=== PATIENT | female | born 1950 | race Caucasian/White ===

== ENCOUNTER 2022-06-18 04:40 | Day surgery (SDC) | payer OTHER ==
[2022-06-14 15:10] VITALS: BMI 38.2
[2022-06-18 10:13] VITALS: RESP 19
[2022-06-18 10:21] VITALS: BP 110/62; PULSE 69; TEMP 98
== END 2022-06-18 10:21 | disposition home or self-care (01) ==
LOC: JASU-ENDO 04:40
PROVIDERS: ATTEND Student in an Organized Health Care Education/Training Program
PROC: 0DB78ZX Excision of Stomach, Pylorus, Via Natural or Artificial Opening Endoscopic, Diagnostic (ICD-10-PCS; 2022-06-18)
PROC: 0DB68ZX Excision of Stomach, Via Natural or Artificial Opening Endoscopic, Diagnostic (ICD-10-PCS; 2022-06-18)
PROC: 0DB28ZX Excision of Middle Esophagus, Via Natural or Artificial Opening Endoscopic, Diagnostic (ICD-10-PCS; 2022-06-18)
PROC: 0DB38ZX Excision of Lower Esophagus, Via Natural or Artificial Opening Endoscopic, Diagnostic (ICD-10-PCS; principal; 2022-06-18 09:00)
DX: K29.50 Unspecified chronic gastritis without bleeding (principal); K21.00 Gastro-esophageal reflux disease with esophagitis, without bleeding; K25.9 Gastric ulcer, unspecified as acute or chronic, without hemorrhage or perforation
CPT/HCPCS: 82962; 88305-TC; 88342-TC

== ENCOUNTER 2022-10-29 05:01 | Day surgery (SDC) | payer OTHER ==
[2022-10-23 08:52] VITALS: BMI 37.8
[2022-10-29 11:37] VITALS: TEMP 97.9
[2022-10-29 14:34] VITALS: BP 118/65; PULSE 65; RESP 14
== END 2022-10-29 12:00 | disposition home or self-care (01) ==
LOC: JASU-ENDO 05:01
PROVIDERS: ATTEND Student in an Organized Health Care Education/Training Program
PROC: 0DB78ZX Excision of Stomach, Pylorus, Via Natural or Artificial Opening Endoscopic, Diagnostic (ICD-10-PCS; principal; 2022-10-29 10:00)
DX: K29.50 Unspecified chronic gastritis without bleeding (principal); Z87.11 Personal history of peptic ulcer disease; I10 Essential (primary) hypertension; E11.9 Type 2 diabetes mellitus without complications
CPT/HCPCS: 82962; 88305-TC; 88342-TC